=== PATIENT | male | born 1940 | race Caucasian/White ===

== ENCOUNTER 2021-04-02 12:35 | Emergency (ER) | payer BC, MEDICARE ==
[~2021-04-02] VITALS: Ht 182.9 cm; Wt 111.2 kg
[2021-04-02] MEDS ORDERED: METO1TAB87 (12:48)
[2021-04-02] MEDS ORDERED: LISI-898 (12:48)
[2021-04-02] MEDS ORDERED: ATOR40TA75 (12:48)
[2021-04-02] MEDS ORDERED: SYNT112T2 (12:48)
--- OUTSIDE RECORDS SUMMARY | 2021-04-02 20:38 | CCD | Continuity of Care Document ---
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 Teodoro snow MD Onset: 07/31/2020 Vitreous degeneration Teodoro Hui MD Onset: 01/28/2020 Retinal hemorrhage Teodoro Hui MD Onset: 03/12/2019 Presence of intraocular lens Teodoro Hui MD Onset: Social History Type Date Description Comments Sex Unknown ETOH Use Occasionally consumes alcohol Tobacco Use Start: Unknown Patient has never smoked Recreational Drug Use Denies Drug Use Smoking Status Reviewed: 02/08/21 Patient has never smoked Allergies and adverse reactions Active Allergies Criticality Reaction | Severity Comments Date Cinnamon Unable to assess criticality Urticaria 07/28/2017 Medications Active Medications SIG Qnty Indications Ordering Provide r Date Levothyroxine-Liothyronine 120mg T ablets 1 tab by mouth every day Unknown 0 Lisinopril 5mg Tablets 1 tab by mouth every day Unknown Co Q-10 1 tab by mouth every day Unknown Aspirin Ec Low Dose 81mg Tablets D R 1 tab by mouth every day Unknown Pravastatin Sodium 40mg Tablets 1 tab by mouth every day Unknown Isosorbide Dinitrate ER 1 tab by mouth every day Unknown Immunizations Description No Information Available Vital Signs Date Vital Result Comment 02/12/2021 2:05pm Intraocular Pressure Right Eye 18 mmHg Tp 02:06 PM Intraocular Pressure Left Eye 21 mmHg Tp Recheck IOP Right Eye 23 Ta SGS Post DIL 02 :34 PM holding lids/pt squeeze Recheck IOP Left Eye 26 07/31/2020 1:16pm Intraocular Pressure Right Eye 23 mmHg Tp Intraocular Pressure Left Eye 24 mmHg Tp 01:18 P M Recheck IOP Right Eye 18 Ta SGS/Holding Lid s/PT Squeezing 02:00 PM Recheck IOP Left Eye 23 Cornea Thickness Left Eye 547 m no adjustment in IOP Cornea Thickness Right Eye 550 m no adjustment in IOP Results Description No Information Available Procedures Date Code Description Status 02/12/2021 62792 Scan Computer Diag Imag W/Report Optic Nerve Completed 02/12/2021 40945 Vis Field W/Med Diag;Ext,Tho Pe r Completed 02/12/2021 71047 Exam, Comprehensive, Est PT Comp leted Medical Devices Description No Information Available Encounters Type Date Location Provider Dx Diagnosis Office Visit 02/12/2021 1:45p Main Office Teodoro Hui MD H40.0 13 Open angle with borderline findings, low risk, bilateral Z96.1 Presence of intraocular lens H43.813 Vitreous degeneration, bilat eral Assessments Date Code Description Provider 02/12/2021 H40.013 Open angle with borderline findi ngs, low risk, bilateral Teodoro Hui MD 02/12/2021 Z96.1 Presence of intraocular lens Henrique Hui MD 02/12/2021 H43.813 Vitreous degeneration, bilateral Teodoro Hui MD Plan of Treatment 02/12/2021 - Teodoro Hui MD* H40.013 Open angle with borderline findings, low risk, bilateral* Comments:* monitor * Follow up:* 6-7 MOS IOP/NON-DIL/NO TESTING * Z96.1 Presence of intraocular lens* Comments:* Follow. * H43.813 Vitreous degeneration, bilateral* Comments:* Discussed diagnosis with patient. Patient instructed to call and follow-up for any increase or change in floaters, new or more frequent flashes, any change in vision or loss of visual field. Follow. Functional Status Description No Information Available Mental Status Description No Information Available Referrals Description No Information Available"
--- OUTSIDE RECORDS SUMMARY | 2021-04-02 20:38 | CCD | Continuity of Care Document ---
Author Author Fernie Hui Organization Unknown Address [address] [place] [id number] Phone [phone] Care Team Providers Care Barrel Bander Name Role Phone Efren Harper DO AUTM [phone] Problems Active Problems Provider Date Open angle [...] Available Procedures Date Code Description Status 02/12/2021 77060 Scan Computer Diag Imag W/Report Optic Nerve Completed 02/12/2021 40174 Vis Field W/Med Diag;Ext,Tho Pe r Completed 02/12/2021 60465 Exam, Comprehensive, Est PT Comp leted Medical [...]
--- OUTSIDE RECORDS SUMMARY | 2021-04-02 20:38 | CCD | Continuity of Care Document ---
Author Author Fernie Hui Organization Unknown Address [address] [place] [id number] Phone [phone] Care Team Providers Care Property Clerk Name Role Phone Efren Harper DO AUTM [phone] Problems Active Problems Provider Date Open angle [...] Available Procedures Date Code Description Status 02/12/2021 18519 Scan Computer Diag Imag W/Report Optic Nerve Completed 02/12/2021 86467 Vis Field W/Med Diag;Ext,Tho Pe r Completed 02/12/2021 82791 Exam, Comprehensive, Est PT Comp leted Medical [...]
--- OUTSIDE RECORDS SUMMARY | 2021-04-02 20:38 | CCD | Continuity of Care Document ---
Author Author Fernie Hui Organization Unknown Address [address] [place] [id number] Phone [phone] Care Team Providers Care College Athletic Director Name Role Phone Efren Harper DO AUTM [phone] Problems Active Problems Provider Date Open angle [...] Available Procedures Date Code Description Status 02/12/2021 77522 Scan Computer Diag Imag W/Report Optic Nerve Completed 02/12/2021 91648 Vis Field W/Med Diag;Ext,Tho Pe r Completed 02/12/2021 89525 Exam, Comprehensive, Est PT Comp leted Medical [...] bilateral Teodoro Hui MD Plan of Treatment Future Appointment(s):* 04/06/2022 2:30 pm - Teodoro Hui MD at Main Office * 08/18/2021 2:30 pm - Teodoro Hui MD at Main Office 02/12/2021 - Teodoro Hui MD* H40.013 Open [...]
--- OUTSIDE RECORDS SUMMARY | 2021-04-02 20:38 | CCD ---
Author Author [facility] Organization [facility] Address Unknown Phone Unavailable Care Team Providers Care Graduation Coach Name Role Phone Leroy, P Efren DO Unavailable Unavailable Leroy, P Efren DO Unavailable Unavailable Leroy, P Efren DO Unavailable Unavailable Leroy, P Efren DO Unavailable Unavailable Leroy, P Efren DO Unavailable Unavailable Leroy, P Efren DO Unavailable Unavailable Leroy, P Efren DO Unavailable Unavailable Leroy, P Efren DO Unavailable Unavailable Leroy, P Efren DO Unavailable Unavailable Leroy, P Efren DO Unavailable Unavailable Leroy, P Efren DO Unavailable Unavailable Leroy, P Efren DO Unavailable Unavailable Leroy, P Efren DO Unavailable Unavailable Leroy, P Efren DO Unavailable Unavailable Leroy, P Efren DO Unavailable Unavailable Leroy, P Efren DO Unavailable Unavailable Leroy, P Efren DO Unavailable Unavailable Leroy, P Efren DO Unavailable Unavailable Leroy, P Efren DO Unavailable Unavailable Leroy, P Efren DO Unavailable Unavailable Leroy, P Efren DO Unavailable Unavailable Leroy, P Efren DO Unavailable Unavailable Leroy, P Efren DO Unavailable Unavailable Leroy, P Efren DO Unavailable Unavailable Leroy, P Efren DO Unavailable Unavailable Leroy, P Efren DO Unavailable Unavailable Leroy, P Efren DO Unavailable Unavailable Leroy, P Efren DO Unavailable Unavailable Leroy, P Efren DO Unavailable Unavailable Leroy, P Efren DO Unavailable Unavailable Leroy, P Efren DO Unavailable Unavailable Leroy, P Efren DO Unavailable Unavailable Leroy, P Efren DO Unavailable Unavailable Leroy, P Efren DO Unavailable Unavailable Leroy, P Efren DO Unavailable Unavailable Leroy, P Efren DO Unavailable Unavailable Leroy, P Efren DO Unavailable Unavailable Leroy, P Efren DO Unavailable Unavailable Leroy, P Efren DO Unavailable Unavailable Leroy, P Efren DO Unavailable Unavailable Leroy, P Efren DO Unavailable Unavailable Leroy, P Efren DO Unavailable Unavailable Leroy, P Efren DO Unavailable Unavailable Leroy, P Efren DO Unavailable Unavailable Leroy, P Efren DO Unavailable Unavailable Leroy, P Efren DO Unavailable Unavailable Leroy, P Efren DO Unavailable Unavailable Leroy, P Efren DO Unavailable Unavailable Leroy, P Efren DO Unavailable Unavailable Leroy, P Efren DO Unavailable Unavailable Leroy, P Efren DO Unavailable Unavailable Leroy, P Efren DO Unavailable Unavailable Leroy, P Efren DO Unavailable Unavailable Leroy, P Efren DO Unavailable Unavailable Leroy, P Efren DO Unavailable Unavailable Leroy, P Efren DO Unavailable Unavailable Leroy, P Efren DO Unavailable Unavailable Leroy, P Efren DO Unavailable Unavailable Leroy, P Efren DO Unavailable Unavailable Leroy, P Efren DO Unavailable Unavailable Leroy, P Efren DO Unavailable Unavailable Leroy, P Efren DO Unavailable Unavailable Leroy, P Efren DO Unavailable Unavailable Leroy, P Efren DO Unavailable Unavailable Leroy, P Efren DO Unavailable Unavailable Leroy, P Efren DO Unavailable Unavailable Leroy, P Efren DO Unavailable Unavailable Leroy, P Efren DO Unavailable Unavailable Leroy, P Efren DO Unavailable Unavailable Leroy, P Efren DO Unavailable Unavailable Leroy, P Efren DO Unavailable Unavailable Leroy, P Efren DO Unavailable Unavailable Jeevan STAFFORD JR, MD Unavailable Unavailable Jeevan STAFFORD JR, MD Unavailable Unavailable Jeevan STAFFORD JR, MD Unavailable Unavailable Jeevan STAFFORD JR, MD Unavailable Unavailable Jeevan STAFFORD JR, MD Unavailable Unavailable Jeevan STAFFORD JR, MD Unavailable Unavailable Jeevan STAFFORD JR, MD Unavailable Unavailable Jeevan STAFFORD JR, MD Unavailable Unavailable Jeevan STAFFORD JR, MD Unavailable Unavailable Jeevan STAFFORD JR, MD Unavailable Unavailable Jeevan STAFFORD JR, MD Unavailable Unavailable Jeevan STAFFORD JR, MD Unavailable Unavailable Jeevan STAFFORD JR, MD Unavailable Unavailable Jeevan STAFFORD JR, MD Unavailable Unavailable Jeevan STAFFORD JR, MD Unavailable Unavailable Jeevan STAFFORD JR, MD Unavailable Unavailable Jeevan STAFFORD JR, MD Unavailable Unavailable Jeevan STAFFORD JR, MD Unavailable Unavailable CARJeevan GARCIA JR, MD Unavailable Unavailable Jeevan STAFFORD JR, MD Unavailable Unavailable CARJeevan GARCIA JR, MD Unavailable Unavailable CARJeevan GARCIA JR, MD Unavailable Unavailable CARJeevan GARCIA JR, MD Unavailable Unavailable CARJeevan GARCIA JR, MD Unavailable Unavailable Jeevan STAFFORD JR, MD Unavailable Unavailable CARJeevan GARCIA JR, MD Unavailable Unavailable CARPATRICET Jeevan GLORIA MD Unavailable Unavailable CARHART Jeevan GLORIA MD Unavailable Unavailable CARHART Jeevan GLORIA MD Unavailable Unavailable CARHART Jeevan GLORIA MD Unavailable Unavailable CARHART Jeevan GLORIA MD Unavailable Unavailable CARPATRICET Jeevan GLORIA MD Unavailable Unavailable CARJeevan GARCIA JR, MD Unavailable Unavailable CARPATRICET Jeevan GLORIA MD Unavailable Unavailable CARPATRICET Jeevan GLORIA MD Unavailable Unavailable CARPATRICET Jeevan GLORIA MD Unavailable Unavailable CARPATRICET Jeevan GLORIA MD Unavailable Unavailable CARJeevan GARCIA JR, MD Unavailable Unavailable CARJeevan GARCIA JR, MD Unavailable Unavailable CARJeevan GARCIA JR, MD Unavailable Unavailable CARJeevan GARCIA JR, MD Unavailable Unavailable CARJeevan GARCIA JR, MD Unavailable Unavailable CARJeevan GARCIA JR, MD Unavailable Unavailable CARJeevan GARCIA JR, MD Unavailable Unavailable CARJeevan GARCIA JR, MD Unavailable Unavailable CARJeevan GARCIA JR, MD Unavailable Unavailable CARJeevan GARCIA JR, MD Unavailable Unavailable CARJeevan GARCIA JR, MD Unavailable Unavailable CARJeevan GARCIA JR, MD Unavailable Unavailable CARJeevan GARCIA JR, MD Unavailable Unavailable CARJeevan GARCIA JR, MD Unavailable Unavailable CARJeevan GARCIA JR, MD Unavailable Unavailable CARJeevan GARCIA JR, MD Unavailable Unavailable CARJeevan GARCIA JR, MD Unavailable Unavailable CARJeevan GARCIA JR, MD Unavailable Unavailable CARJeevan GARCIA JR, MD Unavailable Unavailable CARJeevan GARCIA JR, MD Unavailable Unavailable CARJeevan GARCIA JR, MD Unavailable Unavailable CARJeevan GARCIA JR, MD Unavailable Unavailable CARJeevan GARCIA JR, MD Unavailable Unavailable CARJeevan GARCIA JR, MD Unavailable Unavailable CARJeevan GARCIA JR, MD Unavailable Unavailable CARJeevan GARCIA JR, MD Unavailable Unavailable CARJeevan GARCIA JR, MD Unavailable Unavailable CARJeevan GARCIA JR, MD Unavailable Unavailable CARJeevan GARCIA JR, MD Unavailable Unavailable CARJeevan GARCIA JR, MD Unavailable Unavailable CARJeevan GARCIA JR, MD Unavailable Unavailable CARJeevan GARCIA JR, MD Unavailable Unavailable CARJeevan GARCIA JR, MD Unavailable Unavailable CARJeevan GARCIA JR, MD Unavailable Unavailable CARJeevan GARCIA JR, MD Unavailable Unavailable CARJeevan GARCIA JR, MD Unavailable Unavailable CARJeevan GARCIA JR, MD Unavailable Unavailable CARJeevan GARCIA JR, MD Unavailable Unavailable CARHART JR, L MORENA MD Unavailable Unavailable Jeevan STAFFORD JR, MD Unavailable Unavailable Jeevan STAFFORD JR, MD Unavailable Unavailable Jeevan STAFFORD JR, MD Unavailable Unavailable Jeevan STAFFORD JR, MD Unavailable Unavailable Jeevan STAFFORD JR, MD Unavailable Unavailable Jeevan STAFFORD JR, MD Unavailable Unavailable Jeevan STAFFORD JR, MD Unavailable Unavailable Jeevan STAFFORD JR, MD Unavailable Unavailable Jeevan STAFFORD JR, MD Unavailable Unavailable Jeevan STAFFORD JR, MD Unavailable Unavailable Jeevan STAFFORD JR, MD Unavailable Unavailable Jeevan STAFFORD JR, MD Unavailable Unavailable Reyna HUI MD Unavailable Unavailable Reyna HUI MD Unavailable Unavailable Reyna HUI MD Unavailable Unavailable Reyna HUI MD Unavailable Unavailable Reyna HUI MD Unavailable Unavailable Reyna HUI MD Unavailable Unavailable Reyna HUI MD Unavailable Unavailable Reyna HUI MD Unavailable Unavailable Reyna HUI MD Unavailable Unavailable Reyna HUI MD Unavailable Unavailable Reyna HUI MD Unavailable Unavailable Reyna HUI MD Unavailable Unavailable Reyna HUI MD Unavailable Unavailable Reyna HUI MD Unavailable Unavailable Reyna HUI MD Unavailable Unavailable Reyna HUI MD Unavailable Unavailable Reyna HUI MD Unavailable Unavailable Reyna HUI MD Unavailable Unavailable Reyna HUI MD Unavailable Unavailable Reyna HUI MD Unavailable Unavailable Reyna HUI MD Unavailable Unavailable Reyna HUI MD Unavailable Unavailable Reyna HUI MD Unavailable Unavailable Reyna HUI MD Unavailable Unavailable Reyna HUI MD Unavailable Unavailable Reyna HUI MD Unavailable Unavailable Reyna HUI MD Unavailable Unavailable Reyna HUI MD Unavailable Unavailable Reyna UHI MD Unavailable Unavailable Reyna HUI MD Unavailable Unavailable Reyna HUI MD Unavailable Unavailable Reyna HUI MD Unavailable Unavailable Reyna HUI MD Unavailable Unavailable Reyna HUI MD Unavailable Unavailable Reyna HUI MD Unavailable Unavailable Reyna HUI MD Unavailable Unavailable Reyna HUI MD Unavailable Unavailable Reyna HUI MD Unavailable Unavailable Reyna HUI MD Unavailable Unavailable Reyna HUI MD Unavailable Unavailable Reyna HUI MD Unavailable Unavailable Reyna HUI MD Unavailable Unavailable Reyna HUI MD Unavailable Unavailable Reyna HUI MD Unavailable Unavailable Reyna HUI MD Unavailable Unavailable Reyna HUI MD Unavailable Unavailable Reyna HUI MD Unavailable Unavailable Reyna HUI MD Unavailable Unavailable Reyna HUI MD Unavailable Unavailable Reyna HUI MD Unavailable Unavailable Reyna HUI MD Unavailable Unavailable Reyna HUI MD Unavailable Unavailable Reyna HUI MD Unavailable Unavailable Reyna HUI MD Unavailable Unavailable Reyna HUI MD Unavailable Unavailable Reyna HUI MD Unavailable Unavailable Reyna HUI MD Unavailable Unavailable Reyna HUI MD Unavailable Unavailable Reyna HIU MD Unavailable Unavailable Reyna HUI MD Unavailable Unavailable Reyna HUI MD Unavailable Unavailable Reyna HUI MD Unavailable Unavailable Reyna HUI MD Unavailable Unavailable Reyna HUI MD Unavailable Unavailable Reyna HUI MD Unavailable Unavailable Reyna HUI MD Unavailable Unavailable Reyna HUI MD Unavailable Unavailable Reyna HUI MD Unavailable Unavailable Reyna HUI MD Unavailable Unavailable Reyna HUI MD Unavailable Unavailable Reyna HUI MD Unavailable Unavailable Reyna HUI MD Unavailable Unavailable Valeria Lynn MD Unavailable Unavailable Valeria Lynn MD Unavailable Unavailable Valeria Lynn MD Unavailable Unavailable Valeria Lynn MD Unavailable Unavailable Valeria Lynn MD Unavailable Unavailable Valeria Lynn MD Unavailable Unavailable Valeria Lynn MD Unavailable Unavailable Valeria Lynn MD Unavailable Unavailable Valeria Lynn MD Unavailable Unavailable Valeria Lynn MD Unavailable Unavailable Valeria Lynn MD Unavailable Unavailable Valeria Lynn MD Unavailable Unavailable Valeria Lynn MD Unavailable Unavailable Valeria Lynn MD Unavailable Unavailable Valeria Lynn MD Unavailable Unavailable Valeria Lynn MD Unavailable Unavailable Valeria Lynn MD Unavailable Unavailable Valeria Lynn MD Unavailable Unavailable Valeria Lynn MD Unavailable Unavailable Valeria Lynn MD Unavailable Unavailable Valeria Lynn MD Unavailable Unavailable Valeria Lynn MD Unavailable Unavailable Valeria Lynn MD Unavailable Unavailable Valeria Lynn MD Unavailable Unavailable Valeria Lynn MD Unavailable Unavailable Re-disclosure Warning The records that you are about to access may contain information from federally-assisted alcohol or drug abuse programs. If such information is present, then the following federally mandated warning applies: This information has been disclosed to you from records protected by federal confidentiality rules (42 CFR part 2). The federal rules prohibit you from making any further disclosure of this information unless further disclosure is expressly permitted by the written consent of the person to whom it pertains or as otherwise permitted by 42 CFR part 2. A general authorization for the release of medical or other information is NOT sufficient for this purpose. The Federal rules restrict any use of the information to criminally investigate or prosecute any alcohol or drug abuse patient.The records that you are about to access may contain highly sensitive health information, the redisclosure of which is protected by Article 27-F of the [facility] Public Health law. If you continue you may have access to information: Regarding HIV / AIDS; Provided by facilities licensed or operated by the [facility] Office of Mental Health; or Provided by the [facility] Office for People With Developmental Disabilities. If such information is present, then the following [facility] mandated warning applies: This information has been disclosed to you from confidential records which are protected by state law. State law prohibits you from making any further disclosure of this information without the specific written consent of the person to whom it pertains, or as otherwise permitted by law. Any unauthorized further disclosure in violation of state law may result in a fine or alf sentence or both. A general authorization for the release of medical or other information is NOT sufficient authorization for further disc losure. Family History Family Member Name Family Member Gender Family Member Status Date o f Status Description Data Source(s) Unknown Condition [facility] Unknown Condition [facility] Unknown Condition [facility] Unknown Unknown Problem [facility] Encounters Encounter Providers Location Date Indications Data Source(s ) Outpatient Attender: MORENA STAFFORD JR 09/24/2021 12:00:00 AM EDT [facility] Outpatient Attender: Clau Lynn MD 1 06/02/2020 07:29:25 PM EST - 04/01/2021 09:15:25 PM EST [facility] Outpatient Attender: MORENA STAFFORD JR 03/26/2021 12:00:00 AM [facility] Office Visit Attender: PETER HUI MD [place] [facility] 01:45:00 PM EDT [facility] Outpatient Attender: MORENA STAFFORD JR [id number] 08/23 12:00:00 AM EDT - 09/17/2020 03:30:07 PM EDT Atherosclerotic heart disease of [place] coronary artery without angina pectoris [facility] Atherosclerotic heart disease of [place] coronary artery without angina pectoris Outpatient Attender: Efren Harper DO 09/14/2020 03:54:00 PM EDT D75.89,E03.9 [facility] D75.89,E03.9 Outpatient Attender: Efren Jier: Efren Harper DO 08/14/2020 02:52:00 PM EDT - 08/14/2020 04:05:00 PM EDT [facility] Outpatient Attender: Efren Harper DO 08/14/2020 11:22:00 AM EDT I48.91,I10 [facility] I48.91,I10 Outpatient Attender: MORENA STAFFORD JR 06/15/2020 12:00:00 AM [facility] Outpatient Attender: MORENA STAFFORD JR [id number] 11/22 12:00:00 AM EDT - 12/09/2019 01:58:16 PM EDT Atherosclerotic heart disease of [place] coronary artery without angina pectoris [facility] Atherosclerotic heart disease of [place] coronary artery without angina pectoris Immunizations Vaccine Date Status Description Data Source(s) COVID-19 Moderna 08/11/2020 12:00:00 AM EDT completed [facility] COVID-19 VACCINE Moderna 08/11/2020 12:00:00 AM EDT completed [facility] Vaccine Series Complete: YESThis Data wa s Submitted to [facility] Via [employer]. COVID-19 Moderna 07/12/2020 12:00:00 AM EDT completed [facility] COVID-19 VACCINE Moderna 07/12/2020 12:00:00 AM EDT completed [facility] Vaccine Series Complete: NOThis Data was Submitted to [facility] Via [employer]. Medications Medication Brand Name Start Date Product Form Dose Route Admi nistrative Instructions Pharmacy Instructions Status Indications Reaction Description Data Source(s) Levothyroxine Sodium 0.112 MG Oral Table t Levothyroxine Sodium 112 MCG Oral Tablet (SYNTHROID) Levothyroxine Sodium 112 MCG Oral Tablet (SYNTHROID) 09/17/2020 12:00:00 AM EDT 112 ug Oral act naz Hypothyroidism, unspecified type Take 1 tablet by mouth daily [facility] Hypothyroidism, unspecified type Metoprolol Tartrate 25 MG Oral Tablet Metoprolol Tartrate 03:32:45 PM EDT 12.5 MG active [facility] Multivitamin 08/14/2020 03:08:07 PM EDT 1 TAB acti ve [facility] Levothyroxine Sodium 0.05 MG Oral Tablet Levothyroxine 07/23/2020 03:35:52 PM EDT 50 MCG active [facility] Levothyroxine Sodium 0.112 MG Oral Tablet Levothyroxine 07/07/2020 06:51:47 PM EDT 112 MCG completed [facility] Lisinopril 5 MG Oral Tablet Lisinopril 07/07/2020 07:18:38 AM EDT 5 MG active [facility] Levothyroxine Sodium 0.112 MG Oral Capsule Levothyroxine 07/06/2020 01:30:11 PM EDT 112 MCG completed [facility] atorvastatin 40 MG Oral Tablet Atorvastatin Calcium 40 MG Oral Tablet (LIPITOR) Atorvastatin Calcium 40 MG Oral Tablet (LIPITOR) 07/02/2020 12:00:00 AM EST 40 mg Oral active TAKE 1 TABLET BY MOUTH DAILY [facility] Metoprolol Tartrate 25 MG Oral Tablet Metoprolol Tartrate 06:01:31 PM EST 0 completed [facility] 500 mg 02/10/2020 12:00:00 AM EDT capsule 30 TAKE ONE CAPSULE BY MOUTH THREE TIMES A DAY TAKE ONE CAPSULE BY MOUTH THREE TIMES A DAY SOLD: 02/10/2020 [facility] Lisinopril 5 MG Oral Tablet Lisinopril 06/24/2019 06:34:38 AM EST 5 MG completed [facility] rivaroxaban 20 MG Oral Tablet Rivaroxaban (Xarelto) 20 mg tablet Rivaroxaban (Xarelto) 20 mg tablet 06/14/2019 04:12:13 PM EST 20 MG completed [facility] Levothyroxine Sodium 0.112 MG Oral Capsule Levothyroxine 06/14/2019 03:19:11 PM EST 112 MCG completed [facility] Metoprolol Tartrate 25 MG Oral Tablet Metoprolol Tartrate 06:32:33 AM EST 25 MG completed [facility] clopidogrel 75 MG Oral Tablet [Plavix] Clopidogrel (Pl avix) 75 MG tablet Clopidogrel (Plavix) 75 MG tablet 08/21/2017 10:32:00 AM EDT 75 MG completed [facility] Levothyroxine Sodium 0.112 MG Oral Table t levothyroxine (SYNTHROID, LEVOTHROID) 112 MCG tablet levothyroxine (SYNTHROID, LEVOTHROID) 112 MCG tablet 0 06/15/2017 12:00:00 AM EST 112 ug Oral aborted Hypothyroidism, unspecified type Take 1 tablet by mouth daily [facility] Hypothyroidism, unspecified type Dextromethorphan-guaiFENesin (CORICIDIN HBP CONGESTION/COUGH PO) Oral aborted Take by mouth every 4 (four) hours [facility] Insurance Providers Payer name Policy type / Coverage type Policy ID Covered green party ID Covered green party's relationship to rodriguez Policy [place] Plan Information MEDICARE A [id number] Self [id number] MEDICARE A [id number] Self [id number] A BCBS GENERIC C [id number] Self P [id number] BCBS GENERIC C [id number] Self O [id number] EXCELLUS C [id number] Self [id number] BCBS GENERIC C [id number] Self P [id number] [employer] Blue Cross and Blue Shield [place] Blue Cross/B lue Shield [id number] Self [id number] [place] Medicare Part B [id number] Self [id number] Medicare Part B Medicare Primary [id number] Self [id number] [facility] HMO [place] O [id number] S [id number] MEDICARE [id number] SP [id number] A MEDICARE OUTPATIENT M [id number] S [id number] [facility] [place] [id number] SP [id number] Medicare Part B Medicare Primary [id number] Self [id number] [facility] Part B [id number] Self [id number] Medicare Part B Medicare Primary [id number] Self [id number] Medicare Part B Medicare Primary [id number] Self [id number] Medicare Part B Medicare Primary [id number] Self [id number] Medicare Part B Medicare Primary [id number] Self [id number] Problems, Conditions, and Diagnoses Code Display Name Description Problem Type Effective Dates Data Source(s) E03.9 Hypothyroidism, unspecified Hypothyroidism, unspecifie d Diagnosis 09/17/2020 02:38:38 PM EDT [facility] 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 Problem 07/31/2020 12:00:00 AM EDT [facility] ([facility]) Surgeries/Procedures Procedure Description Date Indications Data Source(s) Exam, Comprehensive, Est PT 02/12/2021 12:00:00 AM EDT [facility] ([facility]) Vis Field W/Med Diag;Ext,Tho Per 02/12/2021 12:00:00 AM EDT [facility] ([facility]) Scan Computer Diag Imag W/Report Optic Nerve 12:00:00 AM EDT [facility] ([facility]) Results ID Date Data Source [id number] 09/17/2020 11:30:30 PM EDT [facility] Name Value Range Interpretation Code Description Data Opal rce(s) Supporting Document(s) Progress Note [facility] [id number]/OPZkkIKBmv5SwMTsbVKk4MPonXNScZ1HiIWE9uA5dUWK6HGhIMlKdFhMbOVT1 lbm HiSfnUHnGaMVHgMfbJUsWoZTwbLcmddBPmIW1EhSN7KVWbX60nTJZeTOElZ6GeBUZ0ODL+As5YOQWegW JgGB7MJzjR2R4tabl4Jg9ulY2JyNOGV1yMMfy1pZJGGKKeMWmGwB0Hu0kaadjXg3vDpiol7L+CZ2Vq36 7ryfCMxUFWpli4a96K7QnukU8d3LkS/xdm5QesFZrO 8W/8M1nfNB7CV/7GjV8WyeJy+vd3bMpelgLNkgaTUyNkOoDwBFsfEIIDQ0Lzm/XeiAPIC9HqHqUhwu++ Wing/dAWRcUKcfWfqVDhLMY0J6SFmFBrPGqqNxfptPC6Elhm9LkBKuR3HcEqOl8JhX8DdURF37xybkfhd [file] AgICAgICAgICAgICAgICAgICAgICAgICAgICAgICAgICAgICAgICAgICANCiAgICAgICAgICAgICAgIC AgICAgICAgICAgICAgICAgICAgICAgICAgICAgICAg ICAgICAgICAgICAgICAgICAgICAgICAgICAgICAgICAgICAgICAgICAgICAgICAgICAgICANCiAgICAg ICAgICAgICAgICAgICAgICAgICAgICAgICAgICAgICAgICAgICAgICAgICAgICAgICAgICAgICAgICAg ICAgICAgICAgICAgICAgICAgICAgICAgICAgICAgIC AgICANCiAgICAgICAgICAgICAgICAgICAgICAgICAgICAgICAgICAgICAgICAgICAgICAgICAgICAgIC AgICAgICAgICAgICAgICAgICAgICAgICAgICAgICAgICAgICAgICAgICAgICANCiAgICAgICAgICAgIC AgICAgICAgICAgICAgICAgICAgICAgICAgICAgICAg ICAgICAgICAgICAgICAgICAgICAgICAgICAgICAgICAgICAgICAgICAgICAgICAgICAgICAgICANCiAg ICAgICAgICAgICAgICAgICAgICAgICAgICAgICAgICAgICAgICAgICAgICAgICAgICAgICAgICAgICAg ICAgICAgICAgICAgICAgICAgICAgICAgICAgICAgIC AgICAgICANCiAgICAgICAgICAgICAgICAgICAgICAgICAgICAgICAgICAgICAgICAgICAgICAgICAgIC AgICAgICAgICAgICAgICAgICAgICAgICAgICAgICAgICAgICAgICAgICAgICAgICANCiAgICAgICAgIC AgICAgICAgICAgICAgICAgICAgICAgICAgICAgICAg ICAgICAgICAgICAgICAgICAgICAgICAgICAgICAgICAgICAgICAgICAgICAgICAgICAgICAgICAgICAN CiAgICAgICAgICAgICAgICAgICAgICAgICAgICAgICAgICAgICAgICAgICAgICAgICAgICAgICAgICAg ICAgICAgICAgICAgICAgICAgICAgICAgICAgICAgIC AgICAgICAgICANCiAgICAgICAgICAgICAgICAgICAgICAgICAgICAgICAgICAgICAgICAgICAgICAgIC AgICAgICAgICAgICAgICAgICAgICAgICAgICAgICAgICAgICAgICAgICAgICAgICAgICANCjw/eHBhY2 flcUDvzuL3T7ueKn0VVz7MXM0ef6QfOPMdPUfhwbQk RpiWBzLcYFYzGvjJWcm3UYgtED1YyUShP6RsO0BxHFqjNZ7IEQTyGSDryOUzXMHmYUFvBcT2WZVqXLuf VQ4FsMWoNVhuXHCmMQUoAgEpZPSqHJGtSQDwXRAdFQESQEOgPTFdTtOfKPpdNW6Gs1EsgWS9JQf+Pg0K FD2eg0QeINqaDdLvJL0heb1AUDvQYcDkW1IgodJ5UN K2INOaXu4BMHAsUHAthXMjYoTkYYMTRhLkH1LrsP46ZREEYn8+QBhvbuAaHpjNAiQ3GNXxe1TyDGs9FC 0PQRUvGWj0hBOjQCOsI9Utw4RaFh75VVGjItxqIw4nCKP3HIafJ3BisHZchMpiZARiZTUnSK9oJd0sDE GbUCBhTdZxRGNDZC4YMGHfCTDvvOPuKMUeTETYNS6O MEqzNOP5HLHnfhYwhYXyTGotTN9JBVRqhzSqFqVnVAPDSOk+Wf5PDP8ae2BnDTauZTAxJR8dav0IRHcI EvClW4Y3pIKiJ3T3GNbjMk1IOWPzMAReAtLaYGNBFJvmCL5AUT8gkoY4PV2LgOIcICZxMBWvhHGmFSe4 Z68wdHHfBRdwHR1HYCB+Sejal+Kw2DAWFwSBIkFTSeNi FpDFZPDqBtP1CsB1SCt1BfN5CpST65tTtwcgFeVQdgIE7ZHC2aFYZqXOIZSG0XrDDkoJ5hmbIyPjKkFC PJUyIjH04fjCHaXJYzBCF0LOHuLy0LTYWbU9ZqbbWgcFgtlwVwZFOfRQYHJI8MBMpoyxKrlIZyiTziFE 68qTepPT2SSf0RAuKkGT0tff1XjCEhIw2DMGJeGK5V ADVwODAuGPKbMXS7ABFvHwDvEZcgWDQyQTIcSPW6ZCGhAXIcWR5EQqAsBHRhOwBcMFGoPAWxAMIech6R JOXyPBTeYPO9IyHaEQPuJDDnCRptFKEzLZRqHFS8KEKlBXIdED2ANxFfVDLiDTPqHyYgGRDjAQXput7U MCJeHEEbVOXsENYoHFJwGVGzXTcdBQLaQCE5MUb8YE ZtCTBzLO4DLnBdQFSjAXlgBJAlDJYbOUHozj9XLTGxHCZeQVb2RfMtLYKnILPzDWhvEJEzPYEyJFBwVZ EoJYUnVF6FQzKhISTkEND5DuMmDMMpUTKvgw3SCNJlBHNdWeN8EOMsWQRbUZVoNNjjJSBaCRR1GFm1LM SaIZYzES4XShWmQRAbLCWlBZNjFNBzTTUwak1NGIPv VSPxVNA8TXVfCPNiMDLmFQpeQOLvGJX3ORG4ESPcQYMgFK3VHsDfBXZsZSC2SsGqQRGmDJRxhr0MBZFb XKKnIoJ9XZEnJEUjLNOmLMemXBFyXRL7BLaiLLGeBPZkZL3MDhWnQBUhUHxlOgvkPNLxDESfvr9DCXWo BRErEZS4EYGkWHQdVCHrZGybCLAwUAS5BFS1BXNyMA QmHV2YTnKsSEIcIydbGlTlWZFuBFVceq7SLUFpZEAnJBW4BqVaVDTmYWObGRctBSCaJLQ1BIY6WSKfRU HxMJ9LMoHrQWTsRoOrXvUqUOApJNIeih3YKKCtSHQmLTQ4KGYtPOBsPRViDVxuFIDnSLXlMpW6WICyCV BcCS5GVpBhKUEmPeH7PebgTJDnXTIxwn9QUGWwXUHq HZe4AEOxKXEgKLQmUGlqKDHpXUZnGROpPRQrYZNtXK0QUzJgVNRyVrQ1RUwcTOIoHIMoxx6HKLGtNFTc SoX9IBFeTQAeDSNlGTqsNJLgDAOaYgEcIKQhHFZdVW0YClEuPTQwXcJ8VQBvQBDjLUVjtf8KTMAhOZQo HYX9GiLySFDoHUFeMOytFXNsTPV0RuP7YMWaZXKtKY 1OLlDhQTDcSiP3KUrqILCxCTXjhb4AhUAtuRwaeo3LYFxZXn8IcDemCYK5FTszCe3vrXZfLHMbTLUCDz 2YafSwEXHlXBEQKDyaGPJnJGG3SwTkXsqjVbX6KTL2WFheUAA5MjB3MRAvK7UsG0QzXtT3PBLlEHD3IT Z4NsM7OhZ5LXT6CWg1Ftk1LUJ7RPLxUpT+IF0gDQ o+Cj4De7YriyH5gmHyOOkgGPm0Dj6WRVODN5PZCr== ID Date Data Source [id number] 09/14/2020 05:38:00 PM EDT [facility] Name Value Range Interpretation Code Description Data Opal rce(s) Supporting Document(s) Folate [Mass/volume] in Serum or Plasma 31.9 ng/mL [facility] @Instrument will autodilute FOLATE INTERPRETATION NORMAL: GREATER THAN 5.38 INDETERMINATE: 3.38 - 5.38 DEFICIENT: LESS THAN 3.37 ID Date Data Source [id number] 09/14/2020 05:59:00 PM EDT [facility] Name Value Range Interpretation Code Description Data Opal rce(s) Supporting Document(s) Vitamin B12 492 pg/mL 211-911 N [facility] ID Date Data Source [id number] 09/14/2020 05:38:00 PM EDT [facility] Name Value Range Interpretation Code Description Data Opal rce(s) Supporting Document(s) Thyrotropin [Units/volume] in Serum or Plasma by Detec tion limit <= 0.005 mIU/L 4.88 u[iU]/mL 0.35-5.50 [facility] Date Data Source [id number] 08/14/2020 03:06:00 PM EDT [facility] Patient Name: JOSE MENG : 1940 Sex: M Pt Unit #: [id number] Location:[facility] Provider: Visit Date/Time: 08/14/20 Primary Insurance: MEDICARE [employer] Secondary Insurance: MEDICARE BLUE PPO Intake Vital Signs 08/14/20 15:06 Current Height 5 ft 11 in Current Weight 257 lb 6 oz Weight Measurement Method Standing Scale BMI 35.9 BP 108/66 Blood Pressure Location Lt brachial Position Sitting Respiration 18 Pulse 72 Temp 97.8 F Temp Source Oral Pulse Oximetry (%) 98 Oxygen Delivery Method room air Intake-Medicare Annual Visit Reasons: Medicare Annual Wellness subsequent Is patient in pain?: No Allergies OIL OF [place]INNA[place] Allergy (Unknown, Uncoded 06/20/13 16:36) Feel stressed/tense/nervous/anxious/difficulty sleeping: not at all Medications - Last Reconciled 08/14/20 by Efren Harper DO acetaminophen 650 mg PO Q4HPRN aspirin (Aspirin Low-Strength) 81 mg PO DAILY atorvastatin 80 mg PO DAILY levothyroxine 50 mcg PO QDAY lisinopril 5 mg PO QDAY metoprolol tartrate 12.5 mg PO BID multivitamin 1 tab PO QAM Fall Risk History of falls: No Ambulatory Aid:: None Gait/Transferring:: Normal Medications:: Antihypertensives HIV testing Offer: No Requirement for HIV testing offer been met?: Not in age range SBIRT Annual Questionnaire Are you currently in recovery for alcohol or substance use?: No How many times in the past year have you had 5 or more drinks in a day?: None How many times in the past year have you used a recreational drug or used a prescription medication for nonmedical reasons?: None Coronavirus Screening Screening Are you currently positive or on isolation for COVID ?: No Do you have any NEW signs of one or more of the following?: no symptoms Do you have NEW signs of at least two of the following?: no symptoms [facility] Medical History (Updated 08/14/20 @ 16:05 by Efren Harper DO) cataracts History of shingles Macrocytosis without anemia Surgical History (Updated 08/14/20 @ 16:05 by Efren Harper DO) History of four vessel coronary artery bypass graft Status post coronary artery bypass graft Status post tonsillectomy Family History Mother H/O hernia repair Father Cardiomyopathy Brother Cardiomyopathy Brother Prostate cancer Diabetes Brother No problems noted. Social History (Updated 08/14/20 @ 15:11 by Tarah Pulliam) Does the Patient have a Healthcare Proxy: No Does Patient have a DNR?: No Does Patient have a Living Will?: No Smoking Status: Never smoker second hand exposure: No Smoking risk assessment performed?: No alcohol intake: current alcohol intake frequency: 0-2 drinks per day substance use type: does not use Medicare Annual Wellness Type Of Examation Type of Exam: Subsequent Wellness Exam EKG EKG Performed: No Medication list Medications acetaminophen 650 mg PO Q4HPRN aspirin (Aspirin Low- Strength) 81 mg PO DAILY atorvastatin 80 mg PO DAILY levothyroxine 50 mcg PO QDAY lisinopril 5 mg PO QDAY metoprolol tartrate 12.5 mg PO BID multivitamin 1 tab PO QAM Allergies Allergies OIL OF [place]NA[place] Allergy (Unknown, Uncoded 06/20/13 16:36) Current Diet Current diet: regular PHQ-2/9 Over the last 2 weeks, how often have you been bothered by any of the following problems? 1. Little interest or pleasure in doing things: not at all 2. Feeling down, depressed, or hopeless: not at all Total score: 0 If score is 2 greater, continue 3. Trouble falling or staying asleep, or sleeping too much: not at all 4. Feeling tired or having little energy: several days 5. Poor appetite or overeating: not at all 6. Feeling bad about yourself - or that you are a failure or have let yourself and your family down:several days 7. Trouble concentrating on things, such as reading the newspaper or watching television: not at all 8. Moving or speaking so slowly that other people could have noticed? - Or the opposite - being so fidgety or restless that you have been moving around a lot more than usual: not at all 9. Thoughts that you would be better off or of hurting yourself in some way: not at all Total score: 2 If you checked off any problems, how difficult have these problems made it for you to do your work, take care of things at home, or get along with other peop le?: not difficult at all Source: Developed by Drs. Morena Hui, Renetta Lucia, Anselmo Carter and colleagues, with an educational jose from [employer]. Vision [place] [facility] - right eye: 20/20 [facility] Far - left eye: 20/20 [facility] Far - bilateral eyes: 20/20 Functional Assessment Bathing: Independent Dressing: Independent Toileting: Independent Transferring: Independent Continence: Independent Feeding: Independent Total Score: 6 Home Safety Home Safety: Reports Bathroom: Grab bars, Lighting: Adequate and Stairs: Handrail available; Denies [place]: No throw rugs Hearing Hearing Left Ear: Normal Hearing Right Ear: Normal Hearing test method: whispered voice IADL Assessment Functional abilities: Up Go test, pt steady, Up Go test, within 30 sec, Pt independent w/phone,Pt independent w/transportation, Pt independent w/shopping, Pt independent w/housework, Pt independent w/meal preparation, Pt independent w/laundry, Pt independent w/medication and Pt independent w/finances Cognitive Evaluation Oriented to the date:: Yes Oriented to time:: Yes Oriented to place:: Yes Mood: grossly normal Affect: Normal Judgement: normal Needs caregiver for assistance: No Clock drawing: Yes Clock drawing with correct time: Yes 3 item recall: 3 HPI Additional HPI HPI Details: 79 YO male with PMH listed is here for Medicare AW. Last seen by me 06/14/19 and started onXarelto for A-Fib. Cardiology Consult and they have kept him on Xarelto. Holter demonstrated sinusrhythm with BBB, complex supraventricular and ventricular ectopy. Patient was getting mentally foggy with lightheadedness. PMH CABG, CAD. Covid shot 06/2020. PCV13 06/2019. Review of Systems Const Denies weight gain and Denies weight loss Card Denies chest pain, Denies irregular heart rhythm and Denies dyspnea on exertion Resp Denies cough and Denies dyspnea on exertion Exam Const General: cooperative, healthy appearing and comfortable Neck Thyroid: abnormal thyroid Carotids: no bruits Lymphatic: lymphadenopathy noted Chest Chest: normal inspection of the chest Resp Auscultation: clear to auscultation bilaterally, no rales, no rhonchi and no wheezes Cardio Rhythm: regular rhythm Heart Sounds: S1 normal, S2 normal, no gallops, no murmurs and no rubs Extrem General: normal to inspection and no edema Quality Reporting Depression/Bipolar (159/160/161/169/177) Total score: 2 Assessment Plan Assessment Plan (1) Medicare annual wellness visit, subsequent: Code(s): Z00. - Encounter for general adult medical examination without abnormal findings Plan - Efren Harper, DO: Medicare AW. Hx CABG and doing well. HTN controlled. Hypothyroid with high TSH. He just got 2nd Covid injection so his TSH may be off. Re-check TSH in September, about 6 weeks. Macrocytosis without anemia. MCV getting bigger every blood test. Observe. B12 and folic acid areordered from today's blood draw. (2) History of four vessel coronary artery bypass graft: Status: Acute Comment: 5v CABG 03/24/17. Code(s): Z95.1 - Presence of aortocoronary bypass graft SNOMED Code(s): 182847127 Category: Surgical (3) Hypothyroidism: Status: Chronic SNOMED Code(s): 07968989 Category: Medical (4) Macrocytosis without anemia: Status: Acute Code(s): D75.89 - Other specified diseases of blood and blood-forming organs SNOMED Code(s): 267567822 Category: Medical Orders Other Medications: Changed: From: metoprolol tartrate TAKE 1 TABLET BY MOUTH (25MG) TWO TIMES DAILY 180 tabs 3RF To: metoprolol tartrate 12.5 mg PO BID Discontinued: rivaroxaban (Xarelto) must administer with evening meal Discontinued Reason: MD Order 20 mg PO QDAY 30 tabs 0RF Instructions: Hypothyroidism (GEN) Coding Level of Care Code Medicare AWV initial Exam Detailed Diagnoses Medicare annual wellness visit, subsequent Z00.00 History of four vessel coronary artery bypass graft Z95.1 Hypothyroidism E03.9 Macrocytosis without anemia D75.89 <Electronically signed by Efren Harper DO> 08/14/20 1606 Name Value Range Interpretation Code Description Data Opal rce(s) Supporting Document(s) ID Date Data Source [id number] 08/14/2020 12:32:00 PM EDT [facility] Name Value Range Interpretation Code Description Data Opal rce(s) Supporting Document(s) Leukocytes [#/volume] in Blood by Automated count 5.5 10*3/uL 4.45-10 .71 N [facility] Erythrocytes [#/volume] in Blood by Automated count 4.31 10*6/uL 4.3- 6.1 N [facility] Hemoglobin [Moles/volume] in Blood 14.8 g/dL 13-18 N [facility] Hematocrit [Volume Fraction] of Blood by Automated count 44.8 % 4 2-52 N [facility] Erythrocyte mean corpuscular volume [Ent itic volume] in Cord blood by Automated count 104 fL 80-96 Above high normal [facility] Erythrocyte mean corpuscular hemoglobin [Entitic mass] by Au tomated count 34 pg 27-31 Above high normal [facility] Erythrocyte mean corpuscular hemoglobin concentration [Mass/volume] in Cord blood 33 g/dL 33-37 N [facility] ital Erythrocyte distribution width [Entitic volume] by Automated count 13 % 11-15 N [facility] Platelets [#/volume] in Blood by Automated count 155 10*3/uL 130-472 N [facility] Platelet mean volume [Entitic volume] in Blood 11.8 fL 9.1-13.1 N [facility] Neutrophils/100 leukocytes in Blood by Automated count 60.1 % 41- 77 N [facility] Neutrophils [#/volume] in Blood by Automated count 3.3 U 1.7-7.6 N [facility] Lymphocytes/100 leukocytes in Blood by Automated count 25.0 % 14- 46 N [facility] Lymphocytes [#/volume] in Blood by Automated count 1.4 U 0.6-4.6 N [facility] Monocytes/100 leukocytes in Blood by Automated count 10.4 % 4-12 N [facility] Monocytes [#/volume] in Blood by Automated count 0.6 U 0.2-1.2 N [facility] Eosinophils/100 leukocytes in Blood by Automated count 3.6 % 0-7 N [facility] Eosinophils [#/volume] in Blood by Automated count 0.2 U 0.0-0.5 N [facility] Basophils/100 leukocytes in Blood by Automated count 0.7 % 0.4-1 .3 N [facility] Basophils [#/volume] in Blood by Automated count 0.0 U 0.0-0.2 N [facility] NUCLEATED RED BLOOD CELL 0 % [facility] NUCLEATED RED BLOOD CELL# [facility] Immature granulocytes [Presence] in Blood by Automated count 0-2 N [facility] Immature granulocytes [#/volume] in Blood by Automated count 0.0 U 0-0.1 N [facility] Manual Differential panel - Blood NO [facility] ID Date Data Source [id number] 08/14/2020 01:42:00 PM EDT [facility] Name Value Range Interpretation Code Description Data Opal rce(s) Supporting Document(s) Urea nitrogen [Mass/volume] in Serum or Plasma 22 mg/dL 9-23 N [facility] Sodium [Moles/volume] in Serum or Plasma 141 mmol/L 132-146 N [facility] Potassium [Moles/volume] in Serum or Plasma 4.3 mmol/L 3.5-5.5 [facility] Chloride [Moles/volume] in Serum or Plasma 109 mmol/L 99-109 N [facility] Carbon dioxide, total [Moles/volume] in Serum or Plasma 28 mmol/L 20 -31 N [facility] Anion gap in Serum or Plasma 8 mmol/L 8-[address] [facility] Glucose [Mass/volume] in Serum or Plasma 94 mg/dL 74-106 N [facility] Creatinine 1.2 mg/dL 0.5-1.1 Above high normal Health system Glomerular filtration rate/1.73 sq M.pre dicted [Volume Rate/Area] in Serum or Plasma 59 ml/min ABOVE 60 [facility] Alanine aminotransferase [Enzymatic acti vity/volume] in Serum or Plasma by With P-5'-P 35 U/L 10-49 N [facility] Aspartate aminotransferase [Enzymatic ac tivity/volume] in Serum or Plasma by With P-5'-P 34 U/L 0-33 Above high normal [facility] Alkaline phosphatase [Enzymatic activity/volume] in Serum or Plasma 50 U/L 45-129 N [facility] Calcium [Mass/volume] in Serum or Plasma 9.2 mg/dL 8.5-10.1 N [facility] Bilirubin.total [Mass/volume] in Serum or Plasma 1.2 mg/dL 0.3-1.2 N [facility] Albumin [Mass/volume] in Serum or Plasma by Bromocresol purple (BCP) dye binding method 4.2 g/dL 3.2-4.8 N [facility] Protein [Mass/volume] in Serum or Plasma 7.2 g/dL 5.7-8.2 N [facility] ID Date Data Source [id number] 08/14/2020 01:42:00 PM EDT [facility] Name Value Range Interpretation Code Description Data Opal rce(s) Supporting Document(s) Triglycerides 48 mg/dL 0-150 N [facility] Cholesterol 125 mg/dL 120-200 N [facility] HDL Cholesterol 53 mg/dL [facility] HDL Less than 40 mg/dL: Major risk for CHDHDL Greater than 59 mg/dL: Low risk for CHD LDL Cholesterol, Calc 63 mg/dL 0-100 N [facility] ID Date Data Source [id number] 08/14/2020 01:42:00 PM [facility] Name Value Range Interpretation Code Description Data Opal rce(s) Supporting Document(s) Thyroxine (T4) free [Mass/volume] in Serum or Plasma 0.59 ng/dL 0.89-1.76 Below low normal [facility] ID Date Data Source [id number] [facility] Interpretation Code Description Data Opal rce(s) Supporting Document(s) Thyrotropin [Units/volume] in Serum or Plasma by Detec tion limit <= 0.005 mIU/L 31.10 u[iU]/mL 0.35-5.50 Above high normal [facility] @Review & document.Repeated by: Candi kong 08/14/20 1342.Result Confirmation: 31.2 uIU/mL ID Date Data Source [id number] 05/06/2020 01:15:48 PM [facility] Name Value Range Interpretation Code Description Data Opal rce(s) Supporting Document(s) Progress Note [facility] CFBYJk0uTvVISaFy21/AHTmlDSXzl5BzRUhjMAp9KProJKOzH3FjOQI2yA7yUXA2MYwHRyEnFiBcKIBo lbm [file] AwMDAxMzIzNiAwMDAwMCBuDQowMDAwMDEzNDMzIDAw GDUdXY1UQpZjYWAlULH4ZYQnIHIrBJQwry8UWQOqAFFgXRJ2ONKnDOLbLABiJRsxHAQaESL4Yqm1NPYq ZUPdXQ0CGjJnWJIuBEX0JgGfXVIcSAHwgu3VHGBbPUCbDhU2VNCjUZMmSASwDFrcKCInQUQ1BmUjSYCx YMAoYF1PYmJbIZQsJyH3JwcfZYFjITWmoj8PFQHdLY TfGzZ7PBPkYUAyDJVfTGthRCOoETN5ApB6TCWyDISoDP3IWpTnSKRlQrybBbktGCTbLHPezf5VKNEqRM JoMFY6AHJaCCMjNSYfRZczEUDfNRM2SbMzTKClQTOtCX1HYhEgFFGmKom9OhOlHDPtTNAmuf9OENMeIR RmMAv5OcHnAURrRJRbDCjbEXUuUDB2VCD0GHZkNHNi HK4CBuKdSZYlHkN8OFHpEHWrTSIsem2FYFPgFECnOIR8UWKrOPZaFLFlPGgqBPKmYPTtNxB3ZGLpQBLp LX6UQoTpDZRjZfU7JGqaOISuUEFrvd7FHCLxYFGoWhK2YAMxINIaQBIkFFtiAUMbFYCgVtK6ZWCsMXCm GN1SHwOlZIZlGdCkIKurJBInQFLuix0HyRLtoFmivh 0HJKfZYy7DiBquJZB4PXiwRf3noQHxYlAzAAOLDa9JrkJvJIQyPNZWJWemXIVdMSQ5SxGtNgGrXbXcVt S1Pgo7XXh4AbQeJ0TtWAGzCZHzXpC6QELxGkLrVMCcQ8T2PhW1TTe8HErlUHX8AUWoHDX3WDL+IF0gDQ o+Nk0Dr2DkgfB3myGqSNfqByZyEY4EEMDPN8PFJq== Procedure Social History Code Duration Value Status Description Data Source(s ) Smoking 02/08/2021 12:00:00 AM EDT Patient has never smoked co mpleted Patient has never smoked [facility] ([facility] ) Alcohol intake 09/17/2020 12:00:00 AM EDT Not Asked completed [facility] Tobacco use and exposure 09/17/2020 12:00:00 AM EDT Never used co mpleted Never used [facility] Smoking 09/17/2020 12:00:00 AM EDT Never smoker completed Never s [facility] 08/14/2020 03:11:09 PM EDT Never smoker completed Never s [facility] Smoking 08/14/2020 03:11:00 PM EDT Never smoker completed Never [facility] Vital Signs ID Date Data Source UNK Name Value Range Interpretation Code Description Data Source(s) Intraocular pressure Right eye 18 mm[Hg] 18 mm [Hg] [facility] ([facility] ) Tp 02:06 PM Intraocular pressure Left eye 21 mm[Hg] 21 mm[ Hg] [facility] ([facility]) Tp Intraocular pressure Right eye 23 mm[Hg] 23 mm [Hg] [facility] ([facility]) Tp Intraocular pressure Left eye 24 mm[Hg] 24 mm[ Hg] [facility] ([facility]) Tp 01:18 PM Central corneal thickness Left cornea Pachymetry 547 um 547 um [facility] ([facility]) no adjustment in IOP Central corneal thickness Right cornea Pachymetry 550 um 550 um [facility] ([facility]) no adjustment in IOP ID Date Data Source [id number] 09/17/2020 11:30:30 PM [facility] Name Value Range Interpretation Code Description Data Source(s) WEIGHT RECORDED 242.5 lb 242.5 lb [facility] Body height Measured 70.87 in 70.87 in [facility] ID Date Data Source [id number] 05/06/2020 01:15:48 PM [facility] Name Value Range Interpretation Code Description Data Source(s) WEIGHT RECORDED 242 lb 242 lb [facility] Patient Treatment Plan of Care Planned Activity Planned Date Details Description Data Source (s) Levothyroxine Sodium 0.112 MG Oral Tablet 09/17/2020 12:00:00 AM [facility] atorvastatin 40 MG Oral Tablet 07/02/2020 12:00:00 AM [facility] Levothyroxine Sodium 0.112 MG Oral Tablet 06/15/2017 12:00:00 AM [facility] Dextromethorphan-guaiFENesin (CORICIDIN HBP CONGESTION/COUGH PO) [facility]
[2021-04-02 20:53] LABS: BASO % 0.8 % (0.0-1.0); EOS # 0.2 10^3/uL (0.0-0.5); EOS % 3.3 % (0.0-3.0); HEMATOCRIT 46.6 % (42.0-52.0); HEMOGLOBIN 15.6 g/dl (13.5-17.5); LYMPH # 1.6 10^3/uL (1.5-5.0); LYMPH % 30.9 % (24.0-44.0); MEAN CORPUSCULAR HEMOGLOBIN 33.9 pg (27.0-33.0); MEAN CORPUSCULAR HGB CONC 33.5 g/dl (32.0-36.5); MEAN CORPUSCULAR VOLUME 101.3 fl (80.0-96.0); MONO # 0.7 10^3/uL (0.0-0.8); MONO % 12.7 % (2.0-8.0); NEUTROPHILS # 2.7 10^3/uL (1.5-8.5); NEUTROPHILS % 52.1 % (36.0-66.0); PLATELET COUNT, AUTOMATED 160 10^3/uL (150-450); WHITE BLOOD COUNT 5.1 10^3/uL (4.0-10.0)
[2021-04-02 21:18] LABS: BLOOD UREA NITROGEN 19 MG/DL (7-18); CALCIUM LEVEL 9.2 MG/DL (8.8-10.2); CARBON DIOXIDE LEVEL 26 MEQ/L (21-32); CHLORIDE LEVEL 110 MEQ/L (98-107); CREATININE FOR GFR 0.97 MG/DL (0.70-1.30); GLOMERULAR FILTRATION RATE > 60.0 (>42); GLUCOSE, FASTING 96 MG/DL (70-100); POTASSIUM SERUM 4.1 MEQ/L (3.5-5.1); SODIUM LEVEL 140 MEQ/L (136-145)
[2021-04-02 22:48] VITALS: BP 151/76
[2021-04-02 22:53] VITALS: O2SAT 98
== END 2021-04-02 22:54 | disposition home or self-care (01) ==
LOC: M ED 12:35
DX: U07.1 COVID-19 (principal); I10 Essential (primary) hypertension; Z86.79 Personal history of other diseases of the circulatory system; Z91.018 Allergy to other foods

== ENCOUNTER 2021-04-05 10:41 | Outpatient (CLI) | payer MEDICARE, BC ==
[~2021-04-05] VITALS: Ht 180.3 cm; Wt 105.0 kg
[~2021-04-05 10:41] MED LIST: ACETAMINOPHEN TAB 650MG DOSE (2X325MG) PO PRN; ALBUTEROL 90 MCG/ACT 8GM HFA INHALER INH PRN; ALBUTEROL SULFATE 2.5 MG/0.5 ML INH NEB SOLN INH PRN; ATOR40TA75; BAMLANIVIMAB 700 MG, ETESEVIMAB 1,400 MG in NS 250 ML IV ONE; CASIRIVIMAB/IMDEVIMAB 1,200 MG in NS 250 ML IV ONE; EPINEPHrine INJ 1 MG/ML 1ML AMP IM PRN; LISI5TAB11; METO1TAB87; NS 1,000 ML IV SCH; SYNT112T2; diphenhydrAMINE 50MG/ML VIAL (J1200) IV PRN; methylPREDNISolone 125MG 2ML VIAL IV PRN
[2021-04-05 11:22] VITALS: BP 160/80
[2021-04-05 11:52] VITALS: BP 145/68
[2021-04-05 12:22] VITALS: BP 134/72
[2021-04-05 13:22] VITALS: BP 155/88
== END 2021-04-05 13:22 | disposition home or self-care (01) ==
LOC: M OPCLI4 10:41
PROVIDERS: ATTEND Family Medicine
DX: U07.1 COVID-19 (principal); Z91.018 Allergy to other foods